=== PATIENT | female | born 1955 | race Caucasian/White ===

== ENCOUNTER 2019-10-06 05:45 | Day surgery (SDC) | payer OTHER, MEDICARE ==
[2019-10-05 12:52] LABS: BASOPHILS # (AUTO) 0.1 X10'3 (0-0.2); BASOPHILS % (AUTO) 0.7 % (0-1); EOSINOPHILS # (AUTO) 0.1 X10'3 (0-0.9); HEMATOCRIT 49.7 % (35.0-45.0); HEMOGLOBIN 16.9 g/dl (12.0-16.0); LYMPHOCYTES # (AUTO) 2.3 X10'3 (1.1-4.8); LYMPHOCYTES % (AUTO) 26.9 % (21-51); MEAN CORPUSCULAR HEMOGLOBIN 26.8 PG (27.0-31.0); MEAN CORPUSCULAR VOLUME 78.8 FL (78-98); MEAN PLATELET VOLUME 8.4 FL (7.4-10.4); MONOCYTES # (AUTO) 0.7 X10'3 (0-0.9); NEUTROPHILS # (AUTO) 5.3 X10'3 (1.8-7.7); NEUTROPHILS % (AUTO) 63.4 % (42-75); PLATELET COUNT 309 X10'3 (140-440); RED BLOOD COUNT 6.31 X10'6 (4.20-5.60); RED CELL DISTRIBUTION WIDTH 15.2 % (11.5-14.5); WHITE BLOOD COUNT 8.4 X10'3 (4.5-11.0)
[2019-10-05 12:57] LABS: ALBUMIN 4.2 G/DL (3.4-5.0); ANION GAP 18 (8-16); BLOOD UREA NITROGEN 18 MG/DL (7-18); BUN/CREATININE RATIO 17.8 (6.6-38.0); CALCIUM 9.4 MG/DL (8.5-10.1); CHLORIDE 98 MMOL/L (99-107); CREATININE 1.01 MG/DL (0.40-0.90); GLUCOSE 81 MG/DL (70-104); POTASSIUM 4.1 MMOL/L (3.5-5.1); SODIUM 136 MMOL/L (135-145); TOTAL CARBON DIOXIDE 20.5 MMOL/L (24-32); eGFR 55 ML/MIN
[2019-10-05 13:00] LABS: PARTIAL THROMBOPLASTIN TIME 29 SECONDS (22-32)
[~2019-10-06] VITALS: Ht 149.9 cm; Wt 99.9 kg
[2019-10-06] VITALS (10 sets, daily range): BP systolic 141–182; BP diastolic 63–79
[2019-10-06] MEDS ORDERED: normal saline 1000ml 1,000 ML IV SCH ×2 (06:10→09:25)
[2019-10-06] MEDS ORDERED: ceFAZolin 2gm in dextrose, iso 50 ML IV ONE (06:30)
[2019-10-06] MEDS ORDERED: midazolam 2 mg/2 ml injection ONE (07:40)
[2019-10-06] MEDS ORDERED: ceFAZolin 1000mg inj ONE (07:40)
[2019-10-06] MEDS ORDERED: LIDOcaine 1% W/epiNEPHrine 1:100,000 20ml vial ONE ×2 (07:40→08:11)
[2019-10-06] MEDS ORDERED: fentaNYL/PF 50MCG/1 ML 2ML syringe ONE (07:40)
[2019-10-06] MEDS ORDERED: LISI30TA4 PO (07:49)
[2019-10-06] MEDS ORDERED: LEVO300T2 PO (07:50)
[2019-10-06] MEDS ORDERED: synthroid PO (07:51)
[2019-10-06] MEDS ORDERED: DULO-31 PO (07:52)
[2019-10-06] MEDS ORDERED: ANAS1TAB10 PO (07:53)
[2019-10-06] MEDS ORDERED: TRIA1CAP6 PO (07:54)
[2019-10-06] MEDS ORDERED: MONT10TA26 PO (07:55)
[2019-10-06] MEDS ORDERED: SERT100T10 PO (07:57)
[2019-10-06] MEDS ORDERED: HYDROcodone/acetaminophen 10/325mg tab PO PRN (09:20)
[2019-10-06] MEDS ORDERED: HYDROcodone/acetaminophen 5mg/325mg tablet PO PRN (09:20)
== END 2019-10-06 13:00 | disposition home or self-care (01) ==
LOC: SSTAY O 05:45
PROVIDERS: ATTEND Internal Medicine Cardiovascular Disease
DX: Z45.010 Encounter for checking and testing of cardiac pacemaker pulse generator [battery] (principal); I10 Essential (primary) hypertension; E03.9 Hypothyroidism, unspecified; M81.0 Age-related osteoporosis without current pathological fracture; I42.9 Cardiomyopathy, unspecified; I44.30 Unspecified atrioventricular block; F39 Unspecified mood [affective] disorder; Z85.3 Personal history of malignant neoplasm of breast; Z90.710 Acquired absence of both cervix and uterus; Z90.49 Acquired absence of other specified parts of digestive tract; Z98.890 Other specified postprocedural states; Z90.721 Acquired absence of ovaries, unilateral; Z87.891 Personal history of nicotine dependence; Z88.2 Allergy status to sulfonamides; Z79.01 Long term (current) use of anticoagulants
CPT/HCPCS: 33228; 36415; 80048; 85025; 85610; 85730; 93005; 99152; 99153; C1785; J0690; J2250; J3010; J3370; J7030; A4620; A6449